=== PATIENT | female | born 1970 | race Caucasian/White ===

== ENCOUNTER 2024-11-14 08:48 | Outpatient (OUT) | payer BC, SELFPAY ==
--- NOTE | 2024-11-14 09:03 | MM_ITS ---
Patient Name: HELADIO DUCKWORTH MR#: [id number] : 1970 Exam Date: 11/14/2024 Ordering Doctor: ROWENA DE LA CRUZ . RADIOLOGY REPORT PROCEDURE: MM TOMOSYNTHESIS SCREENING BI COMPARISON: MG MAMM SCREEN ABELINO W CAD, 07/11/2018. MG MAMM ABELINO DIAG W CAD, 05/11/2017. MG MAMM SCREEN ABELINO W CAD, 04/07/2017. INDICATIONS: Screening Calculator Name NCI Breast Cancer Risk Assessment Tool 5 Year Breast Cancer Risk 1.00% Lifetime Breast Cancer Risk 6.70% Personal Breast Cancer No Personal Ovarian Cancer No Treatments None Family Cancers Mother with uterine cancer at age 44. LOCATION: [facility] BREAST COMPOSITION: The breasts are heterogeneously dense, which may obscure small masses. FINDINGS: RIGHT BREAST: No significant suspicious finding. Similar focal asymmetries are present . LEFT BREAST: No significant suspicious finding. Similar focal asymmetries are present. DIAGNOSTIC CATEGORY 2--BENIGN FINDING. NO CHANGE FROM COMPARISON. RECOMMENDATIONS: ROUTINE MAMMOGRAM AND CLINICAL EVALUATION IN 12 MONTHS. Dictated by: Bennie Izaguirre MD on 11/14/2024 at 15:49 Approved by: Bennie Izaguirre MD on 11/14/2024 at 15:51
== END 2024-11-14 08:49 | disposition home or self-care (01) ==
LOC: MAMMO 08:48
PROVIDERS: PCP Nurse Practitioner; Visit Provider Nurse Practitioner
DX: Z12.31 Encounter for screening mammogram for malignant neoplasm of breast (principal); Z80.8 Family history of malignant neoplasm of other organs or systems
CPT/HCPCS: 77063; 77067